=== PATIENT | male | born 1960 | race African-American/Black ===

== ENCOUNTER 2024-04-05 12:18 | Inpatient (IN) | payer OTHER ==
[~2024-04-05] VITALS: Ht 188 cm; Wt 54.2 kg
[2024-04-05 08:39] VITALS: BP 178/94; TEMP 99.1; O2SAT 95
[2024-04-05 13:19] LABS: CALCIUM, SERUM 8.4 mg/dL (8.5-10.1); CARBON DIOXIDE 25 mmol/L (21-32); CHLORIDE 105 mmol/L (98-107); GLUCOSE 88 mg/dL (74-106); POTASSIUM 3.2 mmol/L (3.5-5.1); SODIUM SERUM 137 mmol/L (136-145); UREA NITROGEN, BLOOD 11 mg/dL (7-18)
[2024-04-05 13:24] LABS: BASOPHILS % (AUTO) 0.4 % (0.0-2.0); EOSINOPHILS # (AUTO) 0.1 K/uL (0.0-0.7); EOSINOPHILS % (AUTO) 1.3 % (0.0-6.0); HEMATOCRIT 32 % (39-51); HEMOGLOBIN 10.6 g/dL (13.5-17.5); LYMPHOCYTES # (AUTO) 1.5 K/uL (0.8-4.8); LYMPHOCYTES % (AUTO) 26.5 % (20.0-44.0); MEAN CORPUSCULAR HEMOGLOBIN 30 PG (26.0-33.0); MEAN CORPUSCULAR HGB CONC 34 g/dl (31.0-36.0); MEAN CORPUSCULAR VOLUME 88 fL (80-96); MONOCYTES # (AUTO) 0.5 K/uL (0.1-1.30); MONOCYTES % (AUTO) 8.8 % (2.0-12.0); NEUTROPHILS # (AUTO) 3.6 K/uL (1.8-8.9); PLATELET COUNT (AUTO) 295 K/uL (150-450); WHITE BLOOD COUNT (AUTO) 5.8 K/uL (4.3-11.0)
[2024-04-05 13:29] LABS: LACTIC ACID 0.8 mmol/L (0.4-2.0)
[2024-04-05 13:31] LABS: INR 1.03 (0.91-1.10); PARTIAL THROMBOPLASTIN TIME 35.8 SEC (24.3-34.3); PROTHROMBIN TIME 10.9 SECS (9.2-11.1)
[2024-04-05] MEDS ORDERED: ACETAMINOPHEN ES 500 MG TABLET ONE (13:34)
[2024-04-05 13:35] LABS: ALANINE AMINOTRANSFERASE < 6 U/L (12-78); ALBUMIN 2.8 g/dL (3.4-5.0); ALKALINE PHOSPHATASE 111 U/L (46-116); ASPARTATE AMINOTRANSFERASE < 5 U/L (15-37); BILIRUBIN,DIRECT 0.1 mg/dL (0.0-0.2); BILIRUBIN,TOTAL 0.4 mg/dL (0.2-1.0); TOTAL PROTEIN, SERUM 6.7 g/dL (6.4-8.2)
[2024-04-05] MEDS: ACETAMINOPHEN ES 500 MG TABLET PO ONE (13:35)
[2024-04-05] MEDS ORDERED: LOSA50TA39 PO (13:47)
[2024-04-05] MEDS ORDERED: ASPI-1169 PO (13:47)
[2024-04-05] MEDS ORDERED: TEMA15CA PO (13:47)
[2024-04-05] MEDS ORDERED: ACET325T53 PO ×2 (13:47)
[2024-04-05] MEDS ORDERED: NA P133E RC (13:47)
[2024-04-05] MEDS ORDERED: BISA5TAB10 PO (13:47)
[2024-04-05] MEDS ORDERED: NIFE-34 PO (13:47)
[2024-04-05] MEDS ORDERED: FERR325T24 PO (13:47)
[2024-04-05] MEDS ORDERED: MAGN400O6 PO (13:47)
[2024-04-05] MEDS ORDERED: LEVE500T20 PO (13:47)
[2024-04-05] MEDS ORDERED: MULT-213 PO (13:47)
[2024-04-05] MEDS ORDERED: DICL100G34 TP (13:47)
[2024-04-05] MEDS ORDERED: IBUP-1955 PO (13:47)
[2024-04-05] MEDS ORDERED: MIRT-73 PO (13:47)
[2024-04-05] MEDS ORDERED: MELA1TAB27 PO (13:47)
[2024-04-05] MEDS ORDERED: CLON0.1T PO (13:47)
[2024-04-05] MEDS ORDERED: NALO4SPR NS (13:47)
[2024-04-05] MEDS ORDERED: TRAM50TA2 PO (13:47)
[2024-04-05] MEDS ORDERED: ONDANSETRON HCL/PF 4 MG/2 ML VIAL IVP PRN (14:30)
[2024-04-05] MEDS ORDERED: MAG HYDROX/AL HYDROX/SIMETH 30 ML UDC PO PRN (14:30)
[2024-04-05] MEDS ORDERED: MAGNESIUM HYDROXIDE 30 ML UDC PO PRN (14:30)
[2024-04-05] MEDS ORDERED: BISACODYL (5 MG) 5 MG TABLET.DR PO PRN (14:30)
[2024-04-05 16:00] VITALS: BP 155/100; TEMP 98.4; O2SAT 99
[2024-04-05] MEDS: ACETAMINOPHEN 325 MG TABLET PO PRN (16:02)
[2024-04-05] MEDS: IV NS 0.9% 1,000 ML IV PRN (16:59)
[2024-04-05] MEDS: POTASSIUM CL. PREMIX PERIPHER. 50 ML IV SCH (17:00)
[2024-04-05] MEDS: PYRIDOXINE HCL 50 MG TABLET PO SCH (17:02)
[2024-04-05 20:00] VITALS: BP 178/94; TEMP 99.1; O2SAT 95
[2024-04-05] MEDS: LEVETIRACETAM (250 MG) 250 MG TABLET PO SCH (20:01)
[2024-04-05] MEDS: TEMAZEPAM 15 MG CAPSULE PO SCH (21:02)
[2024-04-05] MEDS: MIRTAZAPINE 15 MG TABLET ONE (21:28)
[2024-04-05 22:00] VITALS: BP 150/90; TEMP 99; O2SAT 95
[2024-04-05] MEDS: MIRTAZAPINE SOLUTAB 15 MG/UDTABLET TAB.RAPDIS PO SCH (22:00)
[2024-04-05] MEDS ORDERED: PYRIDOXINE HCL PO SCH (22:00)
[2024-04-05] MEDS ORDERED: MELATONIN PO SCH (22:00)
[2024-04-06] MEDS: DICLOFENAC TOPICAL 100 GM TUBE TP PRN (02:11)
[2024-04-06] MEDS: MORPHINE SULFATE INJ 2 MG/ML DISP.SYRIN IV PRN (02:45)
[2024-04-06 08:00] VITALS: BP 163/99; TEMP 98.2; O2SAT 97
[2024-04-06] MEDS: NICOTINE PATCH (14MG) 14 MG PATCH.TD24 TD SCH (08:15)
[2024-04-06] MEDS: MULTIVIT W/MINERALS 1 TAB TABLET PO SCH (08:15)
[2024-04-06] MEDS: LOSARTAN POTASSIUM 50 MG TABLET PO SCH (08:16)
[2024-04-06] MEDS: ASPIRIN 81 MG TAB.CHEW PO SCH (08:16)
[2024-04-06] MEDS: NIFEdipine XL (30MG) 30 MG TAB PO SCH (08:17)
[2024-04-06] MEDS ORDERED: NIFEdipine XL (30MG) 30 MG TAB PO SCH (09:00)
[2024-04-06] MEDS: NICOTINE PATCH (21MG) 21 MG PATCH.TD24 TD SCH (14:31)
[2024-04-06 16:00] VITALS: BP 147/98; TEMP 98.3; O2SAT 90
[2024-04-06 20:00] VITALS: BP 161/100; TEMP 98.6; O2SAT 96
[2024-04-06 20:15] VITALS: BP 161/100; TEMP 98.6; O2SAT 96
[2024-04-07 08:00] VITALS: BP 148/81; TEMP 98.2; O2SAT 96
[2024-04-07] MEDS: FERROUS SULFATE (325 MG) 325 MG/TAB TABLET PO SCH (08:50)
[2024-04-07] MEDS ORDERED: IOHEXOL-300 100 ML VIAL IV ONE (14:38)
[2024-04-07] MEDS ORDERED: CT SWABBABLE VALVE TRANS SET 1 EA INFUS.SET MC ONE (14:39)
[2024-04-07] MEDS ORDERED: IV NS 0.9% 250 ML IV ONE (14:39)
[2024-04-07 16:00] VITALS: BP 147/87; TEMP 98.4; O2SAT 98
[2024-04-07 18:00] LABS: BASOPHILS % (AUTO) 0.4 % (0.0-2.0); EOSINOPHILS # (AUTO) 0.1 K/uL (0.0-0.7); EOSINOPHILS % (AUTO) 1.5 % (0.0-6.0); HEMATOCRIT 34 % (39-51); HEMOGLOBIN 11.5 g/dL (13.5-17.5); LYMPHOCYTES # (AUTO) 1.9 K/uL (0.8-4.8); LYMPHOCYTES % (AUTO) 34.9 % (20.0-44.0); MEAN CORPUSCULAR HEMOGLOBIN 30 PG (26.0-33.0); MEAN CORPUSCULAR HGB CONC 34 g/dl (31.0-36.0); MEAN CORPUSCULAR VOLUME 88 fL (80-96); MONOCYTES # (AUTO) 0.6 K/uL (0.1-1.30); MONOCYTES % (AUTO) 10.4 % (2.0-12.0); NEUTROPHILS # (AUTO) 2.9 K/uL (1.8-8.9); NEUTROPHILS % (AUTO) 52.8 % (43.0-81.0); PLATELET COUNT (AUTO) 317 K/uL (150-450); RED BLOOD CELL COUNT(AUTO) 3.79 MIL/uL (4.5-6.0); RED CELL DISTRIBUTION WIDTH 14.4 % (11.5-15.0); WHITE BLOOD COUNT (AUTO) 5.5 K/uL (4.3-11.0)
[2024-04-07 18:34] LABS: CALCIUM, SERUM 8.9 mg/dL (8.5-10.1); MAGNESIUM 1.7 mg/dL (1.8-2.4); PHOSPHORUS 3.5 mg/dL (2.5-4.9); POTASSIUM 3.2 mmol/L (3.5-5.1)
[2024-04-07 18:57] LABS: THYROID STIMULATING HORMONE 1.6 uIU/mL (0.358-3.74)
[2024-04-07 20:00] VITALS: BP 165/105; TEMP 99.1; O2SAT 95
[2024-04-07 20:12] VITALS: BP 165/105; TEMP 99.1; O2SAT 95
[2024-04-08 07:00] LABS: BASOPHILS % (AUTO) 0.2 % (0.0-2.0); EOSINOPHILS % (AUTO) 0.1 % (0.0-6.0); HEMATOCRIT 33 % (39-51); HEMOGLOBIN 10.9 g/dL (13.5-17.5); LYMPHOCYTES # (AUTO) 0.8 K/uL (0.8-4.8); LYMPHOCYTES % (AUTO) 8.8 % (20.0-44.0); MEAN CORPUSCULAR HEMOGLOBIN 29 PG (26.0-33.0); MEAN CORPUSCULAR HGB CONC 33 g/dl (31.0-36.0); MEAN CORPUSCULAR VOLUME 88 fL (80-96); MONOCYTES # (AUTO) 0.5 K/uL (0.1-1.30); NEUTROPHILS # (AUTO) 7.3 K/uL (1.8-8.9); NEUTROPHILS % (AUTO) 84.9 % (43.0-81.0); PLATELET COUNT (AUTO) 307 K/uL (150-450); RED CELL DISTRIBUTION WIDTH 14.6 % (11.5-15.0); WHITE BLOOD COUNT (AUTO) 8.6 K/uL (4.3-11.0)
[2024-04-08 07:14] LABS: PROTHROMBIN TIME 10.6 SECS (9.2-11.1)
[2024-04-08 07:34] LABS: CALCIUM, SERUM 9.4 mg/dL (8.5-10.1); MAGNESIUM 1.7 mg/dL (1.8-2.4); PHOSPHORUS 3.4 mg/dL (2.5-4.9); POTASSIUM 3.2 mmol/L (3.5-5.1)
[2024-04-08 08:07] LABS: IMMUNOGLOBULIN A, SERUM 264 mg/dL (61-437); IMMUNOGLOBULIN G, SERUM 1151 mg/dL (603-1613); IMMUNOGLOBULIN M, SERUM 97 mg/dL (20-172)
[2024-04-08 09:09] LABS: FOLIC ACID 9.3 ng/mL (>3.0); FREE LAMBDA LT CHAIN SERUM 35.6 mg/L (5.7-26.3); KAPPA/LAMBDA RATIO SERUM 0.93 (0.26-1.65)
[2024-04-08] MEDS: Magnesium 1GM/D5W 100ML PREMIX 100 ML IV SCH (10:37)
[2024-04-08 10:45] VITALS: BP 148/87; TEMP 99.9; O2SAT 97
[2024-04-08] MEDS: POTASSIUM CL. PREMIX PERIPHER. 50 ML IV SCH (12:46)
[2024-04-08 16:00] VITALS: BP 137/95; TEMP 98.4; O2SAT 98
[2024-04-08 20:12] VITALS: BP 134/80; TEMP 98.6; O2SAT 96
[2024-04-09 07:00] VITALS: BP 152/99; TEMP 98.7; O2SAT 95
[2024-04-09 07:08] LABS: *SPE A/G RATIO 0.9 (0.7-1.7); *SPE ALBUMIN 3.2 g/dL (2.9-4.4); *SPE ALPHA-1-GLOBULIN 0.3 g/dL (0.0-0.4); *SPE BETA GLOBULIN 1.1 g/dL (0.7-1.3); *SPE GLOBULIN, TOTAL 3.6 g/dL (2.2-3.9); *SPE M-SPIKE Not Observed g/dL (Not Observed); *SPE PROTEIN TOTAL 6.8 g/dL (6.0-8.5); *SPEGAMMA GLOBULIN 1.3 g/dL (0.4-1.8)
[2024-04-09] MEDS: Z GUARD REMEDY 4 OZ OINT TP PRN (07:49)
[2024-04-09] MEDS: NIFEdipine XL (30MG) 30 MG TAB PO SCH (10:26)
[2024-04-09] MEDS: CLONIDINE HCL 0.1 MG TABLET PO PRN (15:23)
[2024-04-09 16:00] VITALS: BP 184/100; TEMP 98.4; O2SAT 98
[2024-04-09] MEDS: ENSURE ENLIVE 237 ML LIQUID (VANILLA) PO SCH (17:33)
[2024-04-09] MEDS: HYDROCODONE/APAP 5/325MG TABLET PO PRN (18:25)
[2024-04-09 20:00] VITALS: BP_SYST 128; BP_SYST 156; BP_DIAS 68; BP_DIAS 93; TEMP 97.3; TEMP 98.8; O2SAT 96; O2SAT 97
[2024-04-10 07:30] VITALS: BP 155/104; TEMP 99; O2SAT 98
[2024-04-10 08:20] VITALS: BP 144/91; TEMP 98.1; O2SAT 95
[2024-04-11 07:00] VITALS: BP 173/108; TEMP 98.4; O2SAT 96
[2024-04-11] MEDS: LIDOCAINE 5% (PATCH) 1 EA PATCH TP SCH (14:33)
[2024-04-11 16:00] VITALS: BP 144/85; TEMP 98.7; O2SAT 96
[2024-04-11 20:00] VITALS: BP 152/90; TEMP 99.1; O2SAT 95
[2024-04-12] MEDS: MORPHINE SULFATE INJ 2 MG/ML DISP.SYRIN IV PRN (05:28)
[2024-04-12 08:00] VITALS: BP 165/98; TEMP 98.1; O2SAT 94
[2024-04-12 11:56] LABS: INR 1.05 (0.91-1.10); PARTIAL THROMBOPLASTIN TIME 36.2 SEC (24.3-34.3); PROTHROMBIN TIME 11.1 SECS (9.2-11.1)
[2024-04-12 15:55] VITALS: BP 168/104; TEMP 97.5; O2SAT 94
[2024-04-12 20:00] VITALS: BP 145/89; TEMP 97.8; O2SAT 97
[2024-04-12 21:02] VITALS: BP 145/89; TEMP 97.8; O2SAT 97
[2024-04-13] VITALS (10 sets, daily range): BP systolic 110–168; BP diastolic 69–102; TEMP 97.7–99; O2SAT 92–98
[2024-04-13 07:25] LABS: BASOPHILS % (AUTO) 0.2 % (0.0-2.0); EOSINOPHILS % (AUTO) 0.1 % (0.0-6.0); HEMATOCRIT 33 % (39-51); HEMOGLOBIN 10.9 g/dL (13.5-17.5); LYMPHOCYTES # (AUTO) 0.7 K/uL (0.8-4.8); LYMPHOCYTES % (AUTO) 10.5 % (20.0-44.0); MEAN CORPUSCULAR HEMOGLOBIN 29 PG (26.0-33.0); MEAN CORPUSCULAR HGB CONC 33 g/dl (31.0-36.0); MEAN CORPUSCULAR VOLUME 88 fL (80-96); MONOCYTES # (AUTO) 0.5 K/uL (0.1-1.30); MONOCYTES % (AUTO) 6.4 % (2.0-12.0); NEUTROPHILS # (AUTO) 5.9 K/uL (1.8-8.9); NEUTROPHILS % (AUTO) 82.8 % (43.0-81.0); PLATELET COUNT (AUTO) 374 K/uL (150-450); RED BLOOD CELL COUNT(AUTO) 3.73 MIL/uL (4.5-6.0); RED CELL DISTRIBUTION WIDTH 14.4 % (11.5-15.0); WHITE BLOOD COUNT (AUTO) 7.1 K/uL (4.3-11.0)
[2024-04-13 07:59] LABS: CALCIUM, SERUM 9.8 mg/dL (8.5-10.1); CREATININE 0.9 mg/dL (0.6-1.3); MAGNESIUM 1.7 mg/dL (1.8-2.4); PHOSPHORUS 3.4 mg/dL (2.5-4.9); POTASSIUM 3.5 mmol/L (3.5-5.1)
[2024-04-13] MEDS ORDERED: NALOXONE PREFILLED SYRINGE 2 MG/2 ML SYRINGE IV PRN (14:30)
[2024-04-13] MEDS ORDERED: MIDAZOLAM HCL 2 MG/2ML VIAL IV PRN (14:30)
[2024-04-13] MEDS ORDERED: FLUMAZENIL 0.5 MG VIAL IV PRN (14:30)
[2024-04-13] MEDS ORDERED: FENTANYL PF 250MCG/5ML AMPUL IV PRN (14:30)
[2024-04-13] MEDS: Magnesium 1GM/D5W 100ML PREMIX 100 ML IV SCH (17:49)
[2024-04-14 01:37] VITALS: BP 131/83; O2SAT 94
[2024-04-14 07:41] LABS: CALCIUM, SERUM 8.4 mg/dL (8.5-10.1); CREATININE 0.9 mg/dL (0.6-1.3); POTASSIUM 3.3 mmol/L (3.5-5.1)
[2024-04-14] MEDS ORDERED: PYRI-6 PO (12:06)
[2024-04-14] MEDS: POTASSIUM CHLORIDE 20 MEQ TAB.PRT.SR PO SCH (14:35)
[2024-04-14 16:00] VITALS: BP 148/88; TEMP 97.8; O2SAT 95
== END 2024-04-14 17:03 | DRG 120 ==
LOC: ER 12:23 → MED 14:31
PROVIDERS: ADMIT Nurse Practitioner Acute Care; ATTEND Internal Medicine
PROC: 0BDG4ZX Extraction of Left Upper Lung Lobe, Percutaneous Endoscopic Approach, Diagnostic (ICD-10-PCS; principal; 2024-04-13)
DX: C34.12 Malignant neoplasm of upper lobe, left bronchus or lung (principal); C79.51 Secondary malignant neoplasm of bone; E44.0 Moderate protein-calorie malnutrition; R62.7 Adult failure to thrive; E88.09 Other disorders of plasma-protein metabolism, not elsewhere classified; G40.909 Epilepsy, unspecified, not intractable, without status epilepticus; E87.6 Hypokalemia; I10 Essential (primary) hypertension; M19.90 Unspecified osteoarthritis, unspecified site; Z68.1 Body mass index [BMI] 19.9 or less, adult; D64.9 Anemia, unspecified; R53.1 Weakness; Z71.6 Tobacco abuse counseling; F17.210 Nicotine dependence, cigarettes, uncomplicated; R63.4 Abnormal weight loss
CPT/HCPCS: 36415; 71045-TC; 71250-TC; 71260-TC; 77012-TC; 80048-TC; 80076-TC; 82378; 82607-TC; 82728-TC; 82784; 83540-TC; 83605-TC; 83735-TC; 84100-TC; 84155; 84165; 84443-TC; 84484-TC; 85025-TC; 85610-TC; 85730-TC; 86334; 87040-TC; A6403; G0378; J2250; J2270; J3010; J3475; J3480; J7050; Q9967

== ENCOUNTER 2024-08-09 19:31 | Emergency (ER) | payer OTHER ==
[~2024-08-09] VITALS: Ht 185.4 cm; Wt 61.2 kg
[~2024-08-09 19:31] MED LIST: ACET325T53 PO; ASPI-1169 PO; BISA5TAB10 PO; CLON0.1T PO; DICL100G34 TP; FERR325T24 PO; IBUP-1955 PO; LEVE500T20 PO; LOSA50TA39 PO; MAGN400O6 PO; MELA1TAB27 PO; MIRT-73 PO; MULT-213 PO; NA P133E RC; NALO4SPR NS; NIFE-34 PO; PYRI-6 PO; TEMA15CA PO; TRAM50TA2 PO
[2024-08-09 20:09] VITALS: BP 181/97; TEMP 98.4; O2SAT 98
[2024-08-09] MEDS ORDERED: HYDROCODONE/APAP 5/325MG TABLET ONE (22:33)
[2024-08-09] MEDS: HYDROCODONE/APAP 5/325MG TABLET PO ONE (22:39)
[2024-08-10] MEDS ORDERED: PYRI-7 PO (08:10)
== END 2024-08-10 01:51 ==
LOC: ER 19:32
DX: G89.29 Other chronic pain (principal); M54.9 Dorsalgia, unspecified; I10 Essential (primary) hypertension; Z79.899 Other long term (current) drug therapy; Z85.118 Personal history of other malignant neoplasm of bronchus and lung; Z86.79 Personal history of other diseases of the circulatory system; Z87.09 Personal history of other diseases of the respiratory system

== ENCOUNTER 2024-08-10 03:50 | Inpatient (IN) | payer OTHER ==
[~2024-08-10] VITALS: Ht 185.4 cm; Wt 50.8 kg
[2024-08-10] MEDS: PANTOPRAZOLE 40 MG VIAL IV ONE (04:30)
[2024-08-10] MEDS: IV NS 0.9% 1,000 ML BAG IV ONE (04:30)
[2024-08-10 04:33] LABS: BASOPHILS % (AUTO) 0.7 % (0.0-2.0); EOSINOPHILS # (AUTO) 0.1 K/uL (0.0-0.7); EOSINOPHILS % (AUTO) 3.3 % (0.0-6.0); HEMATOCRIT 29 % (39-51); HEMOGLOBIN 9.7 g/dL (13.5-17.5); LYMPHOCYTES % (AUTO) 22.7 % (20.0-44.0); MEAN CORPUSCULAR HEMOGLOBIN 29 PG (26.0-33.0); MEAN CORPUSCULAR HGB CONC 33 g/dl (31.0-36.0); MEAN CORPUSCULAR VOLUME 87 fL (80-96); MONOCYTES # (AUTO) 0.4 K/uL (0.1-1.30); MONOCYTES % (AUTO) 8.1 % (2.0-12.0); NEUTROPHILS # (AUTO) 2.9 K/uL (1.8-8.9); NEUTROPHILS % (AUTO) 65.2 % (43.0-81.0); PLATELET COUNT (AUTO) 356 K/uL (150-450); RED BLOOD CELL COUNT(AUTO) 3.36 MIL/uL (4.5-6.0); RED CELL DISTRIBUTION WIDTH 15.2 % (11.5-15.0); WHITE BLOOD COUNT (AUTO) 4.4 K/uL (4.3-11.0)
[2024-08-10 04:47] LABS: INR 1.03 (0.91-1.10); PARTIAL THROMBOPLASTIN TIME 33.3 SEC (24.3-34.3); PROTHROMBIN TIME 10.9 SECS (9.2-11.1)
[2024-08-10 04:50] LABS: LACTIC ACID 0.5 mmol/L (0.4-2.0)
[2024-08-10 04:57] LABS: CALCIUM, SERUM 9.5 mg/dL (8.5-10.1); CREATININE 2.3 mg/dL (0.6-1.3); POTASSIUM 4.2 mmol/L (3.5-5.1)
[2024-08-10 05:01] LABS: ALBUMIN 2.7 g/dL (3.4-5.0); BILIRUBIN,DIRECT 0.1 mg/dL (0.0-0.2); BILIRUBIN,TOTAL 0.1 mg/dL (0.2-1.0)
[2024-08-10] MEDS ORDERED: ONDANSETRON HCL/PF 4 MG/2 ML VIAL IVP PRN (05:30)
[2024-08-10] MEDS ORDERED: Z GUARD REMEDY 4 OZ OINT TP PRN (05:30)
[2024-08-10] MEDS ORDERED: MAG HYDROX/AL HYDROX/SIMETH 30 ML UDC PO PRN (05:30)
[2024-08-10] MEDS ORDERED: MAGNESIUM HYDROXIDE 30 ML UDC PO PRN (05:30)
[2024-08-10] MEDS: IV D5/0.45 NACL 1,000 ML IV PRN (06:30)
[2024-08-10] MEDS: hydrALAZINE HCL IV 20 MG VIAL IV PRN (07:20)
[2024-08-10] MEDS ORDERED: PYRI-7 PO (08:10)
[2024-08-10] MEDS: ACETAMINOPHEN 325 MG TABLET PO PRN (08:17)
[2024-08-10] MEDS: PANTOPRAZOLE 40 MG VIAL IV SCH (08:18)
[2024-08-10 08:27] VITALS: BP 168/95; TEMP 97.2; O2SAT 98
[2024-08-10] MEDS ORDERED: BISACODYL (5 MG) 5 MG TABLET.DR PO PRN (11:00)
[2024-08-10 11:21] LABS: HEMOGLOBIN 8.9 g/dL (13.5-17.5)
[2024-08-10] MEDS: MULTIVIT W/MINERALS 1 TAB TABLET PO SCH (11:51)
[2024-08-10] MEDS: LOSARTAN POTASSIUM 50 MG TABLET PO SCH (11:51)
[2024-08-10] MEDS: LEVETIRACETAM (250 MG) 250 MG TABLET PO SCH (11:51)
[2024-08-10] MEDS: NIFEDIPINE XL 60 MG TAB.ER.24 PO SCH (11:51)
[2024-08-10] MEDS: PYRIDOXINE HCL 50 MG TABLET PO SCH (11:52)
[2024-08-10 11:53] VITALS: BP 156/104
[2024-08-10 16:00] VITALS: BP 112/67; TEMP 97.3; O2SAT 96
[2024-08-10] MEDS: PEG 3350/NA SULF,BICARB,CL/KCL 4,000 ML BOTTLE PO ONE (16:58)
[2024-08-10] MEDS: IV NS 0.9% 1,000 ML IV PRN (17:45)
[2024-08-10 18:03] LABS: APPEARANCE,URINE CLEAR (CLEAR); BILIRUBIN,URINE NEGATIVE (NEGATIVE); BLOOD, URINE NEGATIVE Ery/uL (NEGATIVE); COLOR,URINE YELLOW (YELLOW); KETONES,URINE NEGATIVE (NEGATIVE); LEUKOCYTE ESTERASE ,URINE 2+ (NEGATIVE); NITRITE, URINE POSITIVE (NEGATIVE); PROTEIN,URINE NEGATIVE (NEGATIVE); UGLUCOSE NEGATIVE (NEGATIVE); UROBILINOGEN,URINE 0.2 EU/dL (0.2)
[2024-08-10 18:26] LABS: CREATININE, URINE 80.4 MG/DL (30.0-125.0); URINE TOTAL PROTEIN 30.6 mg/dL (0-11.9)
[2024-08-10 18:43] LABS: ADD URINE CULTURE YES; BACTERIA,URINE 2+ /HPF (None Seen); RBC,URINE 0-2 /HPF (0-2); SQUAMOUS EPITHELIAL CELL,UR 0-2 /HPF (None Seen)
[2024-08-10 18:56] LABS: HEMOGLOBIN 7.8 g/dL (13.5-17.5)
[2024-08-10 19:25] LABS: EOSINOPHIL,URINE None Seen
[2024-08-10] MEDS: MIRTAZAPINE SOLUTAB 15 MG/UDTABLET TAB.RAPDIS PO SCH (21:05)
[2024-08-10] MEDS: TEMAZEPAM 15 MG CAPSULE PO SCH (21:07)
[2024-08-11 04:00] VITALS: BP 150/75; TEMP 97.3; O2SAT 96
[2024-08-11 06:46] LABS: BASOPHILS % (AUTO) 0.7 % (0.0-2.0); EOSINOPHILS # (AUTO) 0.1 K/uL (0.0-0.7); EOSINOPHILS % (AUTO) 2.6 % (0.0-6.0); HEMATOCRIT 24 % (39-51); HEMOGLOBIN 8.2 g/dL (13.5-17.5); LYMPHOCYTES # (AUTO) 1.2 K/uL (0.8-4.8); LYMPHOCYTES % (AUTO) 23.1 % (20.0-44.0); MEAN CORPUSCULAR HEMOGLOBIN 29 PG (26.0-33.0); MEAN CORPUSCULAR HGB CONC 34 g/dl (31.0-36.0); MEAN CORPUSCULAR VOLUME 86 fL (80-96); MONOCYTES # (AUTO) 0.3 K/uL (0.1-1.30); MONOCYTES % (AUTO) 5.7 % (2.0-12.0); NEUTROPHILS # (AUTO) 3.5 K/uL (1.8-8.9); NEUTROPHILS % (AUTO) 67.9 % (43.0-81.0); PLATELET COUNT (AUTO) 338 K/uL (150-450); RED CELL DISTRIBUTION WIDTH 14.8 % (11.5-15.0); WHITE BLOOD COUNT (AUTO) 5.2 K/uL (4.3-11.0)
[2024-08-11 07:05] LABS: ALBUMIN 2.4 g/dL (3.4-5.0); BILIRUBIN,TOTAL 0.2 mg/dL (0.2-1.0); CALCIUM, SERUM 8.6 mg/dL (8.5-10.1); CREATININE 1.4 mg/dL (0.6-1.3); MAGNESIUM 1.6 mg/dL (1.8-2.4); PHOSPHORUS 3.1 mg/dL (2.5-4.9); TOTAL PROTEIN, SERUM 6.1 g/dL (6.4-8.2)
[2024-08-11 07:34] LABS: THYROID STIMULATING HORMONE 2.46 uIU/mL (0.358-3.74)
[2024-08-11] MEDS: Magnesium 1GM/D5W 100ML PREMIX 100 ML IV SCH (10:09)
[2024-08-11] MEDS: CEFTRIAXONE 1 G in IV D5W 50 ML IV SCH (10:19)
[2024-08-11 12:00] VITALS: BP 147/87; TEMP 98.4; O2SAT 98
[2024-08-11 20:00] VITALS: BP 150/97; TEMP 98.2; O2SAT 97
[2024-08-11] MEDS: ZOLPIDEM TARTRATE 5 MG TABLET PO PRN (22:46)
[2024-08-12 04:00] VITALS: BP 149/92; TEMP 98.6; O2SAT 98
[2024-08-12 06:38] LABS: BASOPHILS % (AUTO) 0.6 % (0.0-2.0); EOSINOPHILS # (AUTO) 0.1 K/uL (0.0-0.7); EOSINOPHILS % (AUTO) 2.1 % (0.0-6.0); HEMATOCRIT 22 % (39-51); HEMOGLOBIN 7.5 g/dL (13.5-17.5); LYMPHOCYTES % (AUTO) 17.6 % (20.0-44.0); MEAN CORPUSCULAR HEMOGLOBIN 29 PG (26.0-33.0); MEAN CORPUSCULAR HGB CONC 34 g/dl (31.0-36.0); MEAN CORPUSCULAR VOLUME 87 fL (80-96); MONOCYTES # (AUTO) 0.4 K/uL (0.1-1.30); MONOCYTES % (AUTO) 6.1 % (2.0-12.0); NEUTROPHILS # (AUTO) 4.4 K/uL (1.8-8.9); NEUTROPHILS % (AUTO) 73.6 % (43.0-81.0); PLATELET COUNT (AUTO) 333 K/uL (150-450); RED BLOOD CELL COUNT(AUTO) 2.56 MIL/uL (4.5-6.0); RED CELL DISTRIBUTION WIDTH 15.1 % (11.5-15.0); WHITE BLOOD COUNT (AUTO) 5.9 K/uL (4.3-11.0)
[2024-08-12 06:58] LABS: CALCIUM, SERUM 8.9 mg/dL (8.5-10.1); MAGNESIUM 1.8 mg/dL (1.8-2.4); PHOSPHORUS 3.7 mg/dL (2.5-4.9)
[2024-08-12 08:08] LABS: PTH, INTACT 10 pg/mL (15-65)
[2024-08-12] MEDS: FERROUS SULFATE (325 MG) 325 MG/TAB TABLET PO SCH (09:00)
[2024-08-12] MEDS: POTASSIUM CHLORIDE 20 MEQ POWDER PACKET PO ONE (10:03)
[2024-08-12 12:00] VITALS: BP 140/78; TEMP 98.6; O2SAT 97
[2024-08-12] MEDS: MORPHINE SULFATE INJ 2 MG/ML DISP.SYRIN IV ONE (14:17)
[2024-08-12] MEDS: LORAZEPAM INJ 2 MG/ML VIAL IV ONE (16:39)
[2024-08-12 20:00] VITALS: BP 148/89; TEMP 98.6
[2024-08-13 04:00] VITALS: BP 162/81; TEMP 98.6; O2SAT 99
[2024-08-13 05:10] LABS: *SPE A/G RATIO 0.8 (0.7-1.7); *SPE ALBUMIN 2.5 g/dL (2.9-4.4); *SPE ALPHA-1-GLOBULIN 0.4 g/dL (0.0-0.4); *SPE ALPHA-2-GLOBULIN 0.8 g/dL (0.4-1.0); *SPE GLOBULIN, TOTAL 3.3 g/dL (2.2-3.9); *SPE M-SPIKE Not Observed g/dL (Not Observed); *SPE PROTEIN TOTAL 5.8 g/dL (6.0-8.5); *SPEGAMMA GLOBULIN 1.2 g/dL (0.4-1.8)
[2024-08-13 05:28] VITALS: BP 146/78; O2SAT 99
[2024-08-13 08:00] VITALS: BP 160/85; TEMP 98.6; O2SAT 98
[2024-08-13] MEDS: TRAMADOL HCL 50 MG TABLET PO PRN (08:29)
[2024-08-13] MEDS: PANTOPRAZOLE 40 MG TABLET.DR PO SCH (09:09)
[2024-08-13] MEDS ORDERED: PANT40TA49 PO (10:54)
[2024-08-13] MEDS: POTASSIUM CHLORIDE 20 MEQ TAB.PRT.SR PO ONE (11:15)
[2024-08-13 12:57] LABS: BASOPHILS % (AUTO) 0.6 % (0.0-2.0); EOSINOPHILS # (AUTO) 0.2 K/uL (0.0-0.7); EOSINOPHILS % (AUTO) 3.4 % (0.0-6.0); HEMATOCRIT 24 % (39-51); HEMOGLOBIN 7.7 g/dL (13.5-17.5); LYMPHOCYTES # (AUTO) 1.2 K/uL (0.8-4.8); LYMPHOCYTES % (AUTO) 23.2 % (20.0-44.0); MEAN CORPUSCULAR HEMOGLOBIN 29 PG (26.0-33.0); MEAN CORPUSCULAR HGB CONC 33 g/dl (31.0-36.0); MEAN CORPUSCULAR VOLUME 89 fL (80-96); MONOCYTES # (AUTO) 0.3 K/uL (0.1-1.30); MONOCYTES % (AUTO) 5.9 % (2.0-12.0); NEUTROPHILS # (AUTO) 3.6 K/uL (1.8-8.9); NEUTROPHILS % (AUTO) 66.9 % (43.0-81.0); PLATELET COUNT (AUTO) 365 K/uL (150-450); RED BLOOD CELL COUNT(AUTO) 2.67 MIL/uL (4.5-6.0); WHITE BLOOD COUNT (AUTO) 5.4 K/uL (4.3-11.0)
[2024-08-13] MEDS: OLANZAPINE 10 MG VIAL IM PRN (13:01)
[2024-08-13 13:09] LABS: CREATININE 0.9 mg/dL (0.6-1.3); POTASSIUM 3.5 mmol/L (3.5-5.1)
[2024-08-13] MEDS ORDERED: CEPH-570 PO (13:31)
[2024-08-13 16:01] VITALS: BP 164/96; TEMP 98.8; O2SAT 98
[2024-08-13] MEDS: MORPHINE SULFATE INJ 2 MG/ML DISP.SYRIN IV ONE (16:49)
[2024-08-13] MEDS ORDERED: IOHEXOL-300 100 ML VIAL IV ONE (17:42)
[2024-08-13] MEDS ORDERED: IV NS 0.9% 250 ML IV ONE (17:42)
[2024-08-13] MEDS ORDERED: CT SWABBABLE VALVE TRANS SET 1 EA INFUS.SET MC ONE (17:42)
[2024-08-13 20:00] VITALS: BP 141/83; TEMP 98.1; O2SAT 98
[2024-08-14 04:00] VITALS: BP 137/89; TEMP 97.9; O2SAT 100
[2024-08-14 08:00] VITALS: BP 125/60; TEMP 97.9; O2SAT 96
[2024-08-14 09:21] VITALS: BP 125/60
[2024-08-14] MEDS ORDERED: LIDO1ADH82 TP (11:19)
[2024-08-14 14:34] VITALS: TEMP 97.9
[2024-08-14] MEDS ORDERED: ENSURE ENLIVE CHOC 237 ML CAN PO SCH (17:00)
== END 2024-08-14 16:03 | DRG 253 ==
LOC: ER 03:52 → TELE1 05:14 → MEDSG1 14:09 → TELE-TD 08-11 18:04 → TELE1 08-11 18:15 → MEDSG1 08-12 10:09
PROVIDERS: ADMIT Nurse Practitioner Acute Care; ATTEND Nurse Practitioner Acute Care
DX: K62.5 Hemorrhage of anus and rectum (principal); N17.0 Acute kidney failure with tubular necrosis; C79.51 Secondary malignant neoplasm of bone; E44.0 Moderate protein-calorie malnutrition; N13.6 Pyonephrosis; E88.09 Other disorders of plasma-protein metabolism, not elsewhere classified; F29 Unspecified psychosis not due to a substance or known physiological condition; R62.7 Adult failure to thrive; C34.12 Malignant neoplasm of upper lobe, left bronchus or lung; D64.9 Anemia, unspecified; E87.6 Hypokalemia; I10 Essential (primary) hypertension; F17.210 Nicotine dependence, cigarettes, uncomplicated; G40.909 Epilepsy, unspecified, not intractable, without status epilepticus; G47.00 Insomnia, unspecified; G89.29 Other chronic pain; M89.8X9 Other specified disorders of bone, unspecified site; M19.90 Unspecified osteoarthritis, unspecified site; I69.331 Monoplegia of upper limb following cerebral infarction affecting right dominant side; R33.9 Retention of urine, unspecified; R53.1 Weakness; F32.A Depression, unspecified; Z53.20 Procedure and treatment not carried out because of patient's decision for unspecified reasons; Z68.1 Body mass index [BMI] 19.9 or less, adult; B95.7 Other staphylococcus as the cause of diseases classified elsewhere
CPT/HCPCS: 36415; 70450-TC; 76770-TC; 80048-TC; 80053-TC; 80076-TC; 81001; 82550-TC; 82570-TC; 83605-TC; 83690-TC; 83735-TC; 83970; 84100-TC; 84155; 84165; 84300-TC; 84443-TC; 85025-TC; 85027-TC; 85730-TC; 86850-TC; 87040-TC; 87081-TC; 87086-TC; A4223; G0378; J0360; J0696; J2060; J2270; J2470; J3475; J3490; J7030; J7050; J7060; Q9967

== ENCOUNTER 2024-11-30 10:36 | Inpatient (IN) | payer OTHER ==
[~2024-11-30] VITALS: Ht 190.5 cm; Wt 47.6 kg
[2024-11-30] VITALS (7 sets, daily range): BP systolic 100–118; BP diastolic 64–78; TEMP 97.3–97.6; O2SAT 99
[~2024-11-30 10:36] MED LIST changes: +CEPH-570 PO; +LIDO1ADH82 TP; +PANT40TA49 PO; -PYRI-6 PO; +PYRI-7 PO
[2024-11-30] MEDS: IV NS 0.9% 1,000 ML BAG IV ONE (11:15)
[2024-11-30] MEDS: CEFEPIME 1 GM in IV D5W 50 ML IV ONE (11:20)
[2024-11-30] MEDS ORDERED: SENN-261 PO (11:34)
[2024-11-30] MEDS ORDERED: LACT-215 PO (11:34)
[2024-11-30] MEDS ORDERED: AMIN30LI2 PO (11:34)
[2024-11-30] MEDS ORDERED: PANT40TA49 PO (11:34)
[2024-11-30] MEDS ORDERED: UMEC1BLS IH (11:34)
[2024-11-30] MEDS ORDERED: ASCORBIC ACID PO (11:34)
[2024-11-30 11:47] LABS: BASOPHILS # (AUTO) 0.1 K/uL (0.0-0.2); BASOPHILS % (AUTO) 0.4 % (0.0-2.0); EOSINOPHILS % (AUTO) 0.1 % (0.0-6.0); HEMATOCRIT 21 % (39-51); LYMPHOCYTES # (AUTO) 9.1 K/uL (0.8-4.8); MEAN CORPUSCULAR HEMOGLOBIN 22 PG (26.0-33.0); MEAN CORPUSCULAR HGB CONC 32 g/dl (31.0-36.0); MEAN CORPUSCULAR VOLUME 67 fL (80-96); MONOCYTES # (AUTO) 2.7 K/uL (0.1-1.30); MONOCYTES % (AUTO) 12.3 % (2.0-12.0); NEUTROPHILS # (AUTO) 9.8 K/uL (1.8-8.9); NEUTROPHILS % (AUTO) 45.2 % (43.0-81.0); PLATELET COUNT (AUTO) 395 K/uL (150-450); RED BLOOD CELL COUNT(AUTO) 3.06 MIL/uL (4.5-6.0); RED CELL DISTRIBUTION WIDTH 19.9 % (11.5-15.0); WHITE BLOOD COUNT (AUTO) 21.6 K/uL (4.3-11.0)
[2024-11-30 11:56] LABS: CALCIUM, SERUM 10.7 mg/dL (8.5-10.1); CREATININE 4.1 mg/dL (0.6-1.3)
[2024-11-30 11:57] LABS: HEMOGLOBIN 6.6 g/dL (13.5-17.5)
[2024-11-30 12:01] LABS: POTASSIUM 6.2 mmol/L (3.5-5.1)
[2024-11-30 12:02] LABS: ALBUMIN 1.7 g/dL (3.4-5.0); BILIRUBIN,DIRECT 0.1 mg/dL (0.0-0.2); BILIRUBIN,TOTAL 0.3 mg/dL (0.2-1.0); TOTAL PROTEIN, SERUM 6.9 g/dL (6.4-8.2)
[2024-11-30 12:03] LABS: LACTIC ACID 0.9 mmol/L (0.4-2.0)
[2024-11-30 12:22] LABS: INR 1.55 (0.91-1.10); PARTIAL THROMBOPLASTIN TIME 46.9 SEC (24.3-34.3)
[2024-11-30] MEDS: Calcium Gluconate 1GM/10ML 4.65 MEQ in IV NS 0.9% 100 ML IV ONE (12:55)
[2024-11-30] MEDS: SODIUM BICARBONATE SYR 50 MEQ/50 ML DISP.SYRIN IV ONE (12:55)
[2024-11-30] MEDS ORDERED: SODIUM BICARBONATE SYR 50 MEQ/50 ML DISP.SYRIN ONE (13:07)
[2024-11-30 13:25] LABS: APPEARANCE,URINE TURBID (CLEAR); COLOR,URINE LIGHT YELLOW (YELLOW)
[2024-11-30 13:26] LABS: BILIRUBIN,URINE NEGATIVE (NEGATIVE); KETONES,URINE NEGATIVE (NEGATIVE); UGLUCOSE NEGATIVE (NEGATIVE)
[2024-11-30 13:27] LABS: BLOOD, URINE 3+ Ery/uL (NEGATIVE); PH,URINE 7.5 (5.0-8.0); PROTEIN,URINE 3+ mg/dl (NEGATIVE)
[2024-11-30 13:28] LABS: LEUKOCYTE ESTERASE ,URINE LARGE (NEGATIVE); NITRITE, URINE NEGATIVE (NEGATIVE); UROBILINOGEN,URINE 0.2 EU/dL (0.2)
[2024-11-30 14:21] LABS: WBC,URINE TOO NUMEROUS TO COUN /HPF (0-3)
[2024-11-30 14:22] LABS: ADD URINE CULTURE YES; BACTERIA,URINE Many /HPF (None Seen); RBC,URINE 51-80 /HPF (0-2)
[2024-11-30 14:23] LABS: SQUAMOUS EPITHELIAL CELL,UR Moderate /HPF (None Seen)
[2024-11-30 14:49] LABS: LYMPHOCYTES % (MANUAL) 7 % (16-48); MONOCYTES % (MANUAL) 9 % (0-11.0); NEUTROPHILS % (MANUAL) 84 (42-76); PLATELET ESTIMATE ADEQUATE
[2024-11-30 14:50] LABS: ANISOCYTOSIS 2+; HYPOCHROMASIA 1+
[2024-11-30] MEDS ORDERED: BISACODYL (5 MG) 5 MG TABLET.DR PO PRN (16:00)
[2024-11-30] MEDS ORDERED: CLONIDINE HCL 0.1 MG TABLET PO PRN (16:00)
[2024-11-30] MEDS ORDERED: ACETAMINOPHEN 325 MG TABLET PO PRN ×2 (16:00)
[2024-11-30] MEDS ORDERED: ONDANSETRON HCL/PF 4 MG/2 ML VIAL IVP PRN (16:00)
[2024-11-30] MEDS ORDERED: DICLOFENAC TOPICAL 100 GM TUBE TP PRN (16:00)
[2024-11-30] MEDS ORDERED: SENNOSIDES 8.6 MG TABLET PO PRN (16:00)
[2024-11-30] MEDS ORDERED: MAG HYDROX/AL HYDROX/SIMETH 30 ML UDC PO PRN (16:00)
[2024-11-30] MEDS ORDERED: MAGNESIUM HYDROXIDE 30 ML UDC PO PRN (16:00)
[2024-11-30] MEDS: IV NS 0.9% 1,000 ML IV SCH (19:30)
[2024-11-30] MEDS: LEVETIRACETAM (250 MG) 250 MG TABLET PO SCH (20:05)
[2024-11-30] MEDS: TRAMADOL HCL 50 MG TABLET PO PRN (21:26)
[2024-12-01] VITALS (83 sets, daily range): BP systolic 79–114; BP diastolic 50–73; TEMP 93–97.2; O2SAT 94–100
[2024-12-01] MEDS: NOREPINEPHRINE 8 MG in IV D5W 242 ML IV PRN (05:37)
[2024-12-01] MEDS: NOREPINEPHRINE 8MG/250ML RTU 250 ML IV ONE (05:38)
[2024-12-01 07:47] LABS: CALCIUM, SERUM 10.3 mg/dL (8.5-10.1); CREATININE 3.7 mg/dL (0.6-1.3); PHOSPHORUS 5.5 mg/dL (2.5-4.9); POTASSIUM 5.5 mmol/L (3.5-5.1)
[2024-12-01] MEDS: PANTOPRAZOLE 40 MG TABLET.DR PO SCH (08:08)
[2024-12-01 08:54] LABS: BASOPHILS # (AUTO) 0.1 K/uL (0.0-0.2); BASOPHILS % (AUTO) 0.2 % (0.0-2.0); HEMATOCRIT 22 % (39-51); LYMPHOCYTES # (AUTO) 14.2 K/uL (0.8-4.8); LYMPHOCYTES % (AUTO) 47.3 % (20.0-44.0); MEAN CORPUSCULAR HEMOGLOBIN 23 PG (26.0-33.0); MEAN CORPUSCULAR HGB CONC 32 g/dl (31.0-36.0); MEAN CORPUSCULAR VOLUME 71 fL (80-96); MONOCYTES # (AUTO) 0.4 K/uL (0.1-1.30); MONOCYTES % (AUTO) 1.2 % (2.0-12.0); NEUTROPHILS # (AUTO) 15.4 K/uL (1.8-8.9); NEUTROPHILS % (AUTO) 51.3 % (43.0-81.0); PLATELET COUNT (AUTO) 335 K/uL (150-450); RED BLOOD CELL COUNT(AUTO) 3.03 MIL/uL (4.5-6.0); RED CELL DISTRIBUTION WIDTH 20.3 % (11.5-15.0)
[2024-12-01 09:26] LABS: WHITE BLOOD COUNT (AUTO) 30.1 K/uL (4.3-11.0)
[2024-12-01 09:27] LABS: HEMOGLOBIN 6.8 g/dL (13.5-17.5)
[2024-12-01] MEDS: SODIUM ZIRCONIUM CYCLOSILICATE 10 GM POWD.PACK PO ONE (09:53)
[2024-12-01] MEDS: CEFEPIME 1 GM in IV D5W 50 ML IV SCH (11:02)
[2024-12-01] MEDS: ARGININE/GLUTAMINE/CALCIUM BMB 1 EACH POWD.PACK PO SCH (11:30)
[2024-12-01 12:40] LABS: LYMPHOCYTES % (MANUAL) 1 % (16-48); MONOCYTES % (MANUAL) 2 % (0-11.0); NEUTROPHILS % (MANUAL) 97 (42-76)
[2024-12-01 12:41] LABS: ANISOCYTOSIS 1+; PLATELET ESTIMATE ADEQUATE
[2024-12-01 12:42] LABS: HYPOCHROMASIA 1+
[2024-12-01] MEDS: LIDOCAINE 2% JEL UROJET 10 ML MM ONE (17:31)
[2024-12-01 18:34] LABS: BASOPHILS % (AUTO) 0.1 % (0.0-2.0); HEMATOCRIT 24 % (39-51); LYMPHOCYTES # (AUTO) 0.4 K/uL (0.8-4.8); LYMPHOCYTES % (AUTO) 1.7 % (20.0-44.0); MEAN CORPUSCULAR HEMOGLOBIN 24 PG (26.0-33.0); MEAN CORPUSCULAR HGB CONC 33 g/dl (31.0-36.0); MEAN CORPUSCULAR VOLUME 71 fL (80-96); MONOCYTES # (AUTO) 0.9 K/uL (0.1-1.30); MONOCYTES % (AUTO) 3.6 % (2.0-12.0); NEUTROPHILS % (AUTO) 94.6 % (43.0-81.0); PLATELET COUNT (AUTO) 279 K/uL (150-450); RED BLOOD CELL COUNT(AUTO) 3.39 MIL/uL (4.5-6.0); RED CELL DISTRIBUTION WIDTH 21.5 % (11.5-15.0); WHITE BLOOD COUNT (AUTO) 25.3 K/uL (4.3-11.0)
[2024-12-01 18:44] LABS: CALCIUM, SERUM 9.8 mg/dL (8.5-10.1); CREATININE 3.5 mg/dL (0.6-1.3); POTASSIUM 5.2 mmol/L (3.5-5.1)
[2024-12-01 19:11] LABS: BAND % (MANUAL) 3 % (0.0-5.0); LYMPHOCYTES % (MANUAL) 1 % (16-48); MONOCYTES % (MANUAL) 1 % (0-11.0); NEUTROPHILS % (MANUAL) 95 (42-76)
[2024-12-01 19:12] LABS: ANISOCYTOSIS 1+; HYPOCHROMASIA 1+; PLATELET ESTIMATE ADEQUATE
[2024-12-01] MEDS ORDERED: CLINDAMYCIN IV RTU IN D5W 900 MG/50 ML PIGGYBACK IV SCH (21:00)
[2024-12-01] MEDS ORDERED: CLINDAMYCIN 900 MG/6 ML VIAL ONE (23:56)
[2024-12-02] VITALS (66 sets, daily range): BP systolic 81–114; BP diastolic 51–79; TEMP 96.6–97.3; O2SAT 95–100
[2024-12-02] MEDS: CLINDAMYCIN 300 MG in IV NS 0.9% 50 ML IV SCH (00:05)
[2024-12-02 04:56] LABS: HEMATOCRIT 26 % (39-51); HEMOGLOBIN 8.4 g/dL (13.5-17.5); LYMPHOCYTES # (AUTO) 0.6 K/uL (0.8-4.8); LYMPHOCYTES % (AUTO) 1.7 % (20.0-44.0); MEAN CORPUSCULAR HEMOGLOBIN 24 PG (26.0-33.0); MEAN CORPUSCULAR HGB CONC 33 g/dl (31.0-36.0); MEAN CORPUSCULAR VOLUME 73 fL (80-96); MONOCYTES # (AUTO) 0.6 K/uL (0.1-1.30); MONOCYTES % (AUTO) 1.9 % (2.0-12.0); NEUTROPHILS # (AUTO) 32.2 K/uL (1.8-8.9); NEUTROPHILS % (AUTO) 96.4 % (43.0-81.0); PLATELET COUNT (AUTO) 287 K/uL (150-450); RED BLOOD CELL COUNT(AUTO) 3.52 MIL/uL (4.5-6.0); RED CELL DISTRIBUTION WIDTH 21.5 % (11.5-15.0)
[2024-12-02 04:59] LABS: ALBUMIN 1.5 g/dL (3.4-5.0); BILIRUBIN,TOTAL 0.4 mg/dL (0.2-1.0); CALCIUM, SERUM 10.2 mg/dL (8.5-10.1); CREATININE 3.7 mg/dL (0.6-1.3); MAGNESIUM 1.8 mg/dL (1.8-2.4); PHOSPHORUS 5.8 mg/dL (2.5-4.9); POTASSIUM 5.1 mmol/L (3.5-5.1)
[2024-12-02 05:01] LABS: WHITE BLOOD COUNT (AUTO) 33.4 K/uL (4.3-11.0)
[2024-12-02 06:07] LABS: ANISOCYTOSIS 1+; BAND % (MANUAL) 3 % (0.0-5.0); BASOPHILS % (MANUAL) 0 % (0.0-2.0); EOSINOPHILS % (MANUAL) 0 % (0-4); LYMPHOCYTES % (MANUAL) 2 % (16-48); MONOCYTES % (MANUAL) 4 % (0-11.0); NEUTROPHILS % (MANUAL) 91 (42-76); PLATELET ESTIMATE ADEQUATE
[2024-12-02] MEDS: FERROUS SULFATE (325 MG) 325 MG/TAB TABLET PO SCH (08:23)
[2024-12-02] MEDS: THERAHONEY GEL 1.5 OZ TUBE TP SCH (08:24)
[2024-12-02 10:57] LABS: APPEARANCE,URINE TURBID (CLEAR); COLOR,URINE DARK YELLOW (YELLOW)
[2024-12-02 10:58] LABS: BILIRUBIN,URINE NEGATIVE (NEGATIVE); KETONES,URINE NEGATIVE (NEGATIVE); PROTEIN,URINE 1+ mg/dl (NEGATIVE); UGLUCOSE NEGATIVE (NEGATIVE); UROBILINOGEN,URINE 0.2 EU/dL (0.2)
[2024-12-02 11:02] LABS: BLOOD, URINE 2+ Ery/uL (NEGATIVE); LEUKOCYTE ESTERASE ,URINE 3+ (NEGATIVE); NITRITE, URINE POSITIVE (NEGATIVE)
[2024-12-02 11:04] LABS: ADD URINE CULTURE YES; BACTERIA,URINE 1+ /HPF (None Seen); MUCUS,URINE Few /LPF (None Seen); RBC,URINE 21-50 /HPF (0-2); SQUAMOUS EPITHELIAL CELL,UR 0-2 /HPF (None Seen); WBC,URINE TOO NUMEROUS TO COUN /HPF (0-3)
[2024-12-02 11:44] LABS: CREATININE, URINE < 13.0 MG/DL (30.0-125.0); URINE SODIUM, RANDOM 80 mmol/l (40-220); URINE TOTAL PROTEIN 362.9 mg/dL (0-11.9)
[2024-12-02 14:04] LABS: EOSINOPHIL,URINE None Seen
[2024-12-02] MEDS: CALCITONIN,SALMON,SYNTHETIC 3.7 ML SPRAY.PUMP NS SCH (16:00)
[2024-12-02] MEDS: Z GUARD REMEDY 4 OZ OINT TP PRN (16:38)
[2024-12-02 17:17] LABS: THYROID STIMULATING HORMONE 2.57 uIU/mL (0.358-3.74)
[2024-12-02 17:34] LABS: INR 1.74 (0.91-1.10); PARTIAL THROMBOPLASTIN TIME 46.4 SEC (24.3-34.3); PROTHROMBIN TIME 17.8 SECS (9.2-11.1)
[2024-12-02 17:53] LABS: D-DIMER 7.37 mg/L(FEU (0.17-0.50)
[2024-12-02] MEDS: MUPIROCIN OINT 2% 22 GM TUBE NS SCH (20:24)
[2024-12-03] VITALS (22 sets, daily range): BP systolic 90–124; BP diastolic 66–79; TEMP 94.3–98; O2SAT 96–100
[2024-12-03 05:02] LABS: HEMATOCRIT 21 % (39-51); HEMOGLOBIN 7.2 g/dL (13.5-17.5); LYMPHOCYTES # (AUTO) 0.7 K/uL (0.8-4.8); LYMPHOCYTES % (AUTO) 2.4 % (20.0-44.0); MEAN CORPUSCULAR HEMOGLOBIN 24 PG (26.0-33.0); MEAN CORPUSCULAR HGB CONC 34 g/dl (31.0-36.0); MEAN CORPUSCULAR VOLUME 71 fL (80-96); MONOCYTES # (AUTO) 0.5 K/uL (0.1-1.30); MONOCYTES % (AUTO) 1.7 % (2.0-12.0); NEUTROPHILS # (AUTO) 29.7 K/uL (1.8-8.9); NEUTROPHILS % (AUTO) 95.9 % (43.0-81.0); PLATELET COUNT (AUTO) 217 K/uL (150-450); RED CELL DISTRIBUTION WIDTH 22.4 % (11.5-15.0)
[2024-12-03 05:10] LABS: PTH, INTACT 2 pg/mL (15-65)
[2024-12-03 05:21] LABS: CALCIUM, SERUM 9.7 mg/dL (8.5-10.1); CREATININE 3.2 mg/dL (0.6-1.3); POTASSIUM 4.6 mmol/L (3.5-5.1)
[2024-12-03 05:23] LABS: IRON, SERUM 22 ug/dl (50-175); TOTAL IRON BINDING CAPACITY 90 ug/dl (250-450)
[2024-12-03 05:39] LABS: FERRITIN 406 ng/mL (8-388)
[2024-12-03 05:59] LABS: ANISOCYTOSIS 1+; BAND % (MANUAL) 3 % (0.0-5.0); BASOPHILS % (MANUAL) 0 % (0.0-2.0); EOSINOPHILS % (MANUAL) 0 % (0-4); LYMPHOCYTES % (MANUAL) 5 % (16-48); MONOCYTES % (MANUAL) 1 % (0-11.0); NEUTROPHILS % (MANUAL) 91 (42-76); PLATELET ESTIMATE ADEQUATE
[2024-12-03 09:25] LABS: ABG BASE EXCESS -12.8 mmol/L (-2.0-3.0); ABG OXYGEN SATURATION 94.8 % (94.0-98.0); ABG PCO2 22.3 mmHg (35.0-48.0); ABG PH 7.337 (7.350-7.450); ABG PO2 75.9 mmHg (83.0-108.0); ABG TOTAL HEMOGLOBIN 7.1 G/dL (13.5-17.5); COHb 3.6 % (0.5-1.5); MetHb 0.2 % (0.0-1.5); O2Hb 91.2 % (94.0-97.0); SITE, ABG RIGHT RADIAL
[2024-12-03] MEDS: Sodium Bicarbonate 100 MEQ in IV 1/2NS 1000 ML 1,000 ML IV SCH (11:34)
[2024-12-03] MEDS: FERROUS SULFATE (325 MG) 325 MG/TAB TABLET PO SCH (16:45)
[2024-12-03 17:35] LABS: HEMOGLOBIN 7.2 g/dL (13.5-17.5)
[2024-12-03 18:15] LABS: INR 1.58 (0.91-1.10); PARTIAL THROMBOPLASTIN TIME 42.7 SEC (24.3-34.3); PROTHROMBIN TIME 16.3 SECS (9.2-11.1)
[2024-12-03 18:18] LABS: D-DIMER 9.76 mg/L(FEU (0.17-0.50)
[2024-12-03 23:47] LABS: HEMOGLOBIN 7.2 g/dL (13.5-17.5)
[2024-12-04] VITALS (56 sets, daily range): BP systolic 89–133; BP diastolic 61–96; TEMP 97.2–100.8; O2SAT 92–100
[2024-12-04] MEDS: ACETAMINOPHEN 650 MG/SUPP.RECT RC PRN (01:55)
[2024-12-04 01:59] LABS: ABG BASE EXCESS -11.1 mmol/L (-2.0-3.0); ABG OXYGEN SATURATION 95.8 % (94.0-98.0); ABG PCO2 19.4 mmHg (35.0-48.0); ABG PH 7.414 (7.350-7.450); ABG PO2 81.4 mmHg (83.0-108.0); ABG TOTAL HEMOGLOBIN 7.6 G/dL (13.5-17.5); COHb 2.9 % (0.5-1.5); MetHb 0.3 % (0.0-1.5); O2Hb 92.7 % (94.0-97.0); SITE, ABG RIGHT RADIAL
[2024-12-04 03:44] LABS: HEMATOCRIT 21 % (39-51); LYMPHOCYTES # (AUTO) 0.5 K/uL (0.8-4.8); LYMPHOCYTES % (AUTO) 1.8 % (20.0-44.0); MEAN CORPUSCULAR HEMOGLOBIN 23 PG (26.0-33.0); MEAN CORPUSCULAR HGB CONC 33 g/dl (31.0-36.0); MEAN CORPUSCULAR VOLUME 70 fL (80-96); MONOCYTES # (AUTO) 0.4 K/uL (0.1-1.30); MONOCYTES % (AUTO) 1.7 % (2.0-12.0); NEUTROPHILS # (AUTO) 25.2 K/uL (1.8-8.9); NEUTROPHILS % (AUTO) 96.5 % (43.0-81.0); PLATELET COUNT (AUTO) 207 K/uL (150-450); RED BLOOD CELL COUNT(AUTO) 2.97 MIL/uL (4.5-6.0); RED CELL DISTRIBUTION WIDTH 22.9 % (11.5-15.0); WHITE BLOOD COUNT (AUTO) 26.1 K/uL (4.3-11.0)
[2024-12-04 03:54] LABS: BILIRUBIN,TOTAL 0.5 mg/dL (0.2-1.0); CALCIUM, SERUM 9.7 mg/dL (8.5-10.1); CREATININE 3.2 mg/dL (0.6-1.3); MAGNESIUM 1.7 mg/dL (1.8-2.4); PHOSPHORUS 5.6 mg/dL (2.5-4.9); POTASSIUM 4.2 mmol/L (3.5-5.1); TOTAL PROTEIN, SERUM 5.7 g/dL (6.4-8.2)
[2024-12-04 03:59] LABS: INR 1.62 (0.91-1.10); PARTIAL THROMBOPLASTIN TIME 42.5 SEC (24.3-34.3); PROTHROMBIN TIME 16.6 SECS (9.2-11.1)
[2024-12-04 04:08] LABS: D-DIMER 13.02 mg/L(FEU (0.17-0.50)
[2024-12-04 04:21] LABS: HEMOGLOBIN 6.8 g/dL (13.5-17.5)
[2024-12-04 04:26] LABS: OCCULT BLOOD STOOL POSITIVE (NEGATIVE)
[2024-12-04 04:45] LABS: ALBUMIN 1.3 g/dL (3.4-5.0)
[2024-12-04 05:25] LABS: ANISOCYTOSIS 1+; BAND % (MANUAL) 5 % (0.0-5.0); LYMPHOCYTES % (MANUAL) 3 % (16-48); MONOCYTES % (MANUAL) 3 % (0-11.0); NEUTROPHILS % (MANUAL) 89 (42-76); PLATELET ESTIMATE ADEQUATE
[2024-12-04 06:10] LABS: IMMUNOGLOBULIN A, SERUM 369 mg/dL (61-437); IMMUNOGLOBULIN G, SERUM 1323 mg/dL (603-1613); IMMUNOGLOBULIN M, SERUM 116 mg/dL (20-172)
[2024-12-04 07:12] LABS: CARCINOEMBRYONIC ANTIGEN (CEA) 19.6 ng/mL (0.0-4.7); FOLIC ACID 4.4 ng/mL (>3.0)
[2024-12-04 08:07] LABS: FREE KAPPA LT CHAINS SERUM 120.4 mg/L (3.3-19.4); FREE LAMBDA LT CHAIN SERUM 130.2 mg/L (5.7-26.3); KAPPA/LAMBDA RATIO SERUM 0.92 (0.26-1.65)
[2024-12-04] MEDS: PANTOPRAZOLE 40 MG VIAL IV SCH (09:27)
[2024-12-04] MEDS ORDERED: Magnesium 1GM/D5W 100ML PREMIX PIGGYBACK IV ONE (10:00)
[2024-12-04] MEDS: Magnesium 1GM/D5W 100ML PREMIX PIGGYBACK IV ONE (10:28)
[2024-12-04] MEDS: CLINDAMYCIN 600 MG in IV NS 0.9% 46 ML IV SCH (13:25)
[2024-12-04] MEDS: NA PHOS,M-B/NA PHOS,DI-BA 1 EA ENEMA RC PRN (21:18)
[2024-12-04] MEDS: IV NS 0.9% 250 ML IV PRN (23:21)
[2024-12-05] VITALS (23 sets, daily range): BP systolic 104–150; BP diastolic 66–89; TEMP 96.3–98.6; O2SAT 96–100
[2024-12-05 04:20] LABS: EOSINOPHILS % (AUTO) 0.2 % (0.0-6.0); HEMATOCRIT 24 % (39-51); HEMOGLOBIN 7.9 g/dL (13.5-17.5); LYMPHOCYTES # (AUTO) 0.6 K/uL (0.8-4.8); LYMPHOCYTES % (AUTO) 2.6 % (20.0-44.0); MEAN CORPUSCULAR HEMOGLOBIN 25 PG (26.0-33.0); MEAN CORPUSCULAR HGB CONC 33 g/dl (31.0-36.0); MEAN CORPUSCULAR VOLUME 74 fL (80-96); MONOCYTES # (AUTO) 0.3 K/uL (0.1-1.30); MONOCYTES % (AUTO) 1.4 % (2.0-12.0); NEUTROPHILS # (AUTO) 23.2 K/uL (1.8-8.9); NEUTROPHILS % (AUTO) 95.8 % (43.0-81.0); PLATELET COUNT (AUTO) 145 K/uL (150-450); RED BLOOD CELL COUNT(AUTO) 3.22 MIL/uL (4.5-6.0); RED CELL DISTRIBUTION WIDTH 23.2 % (11.5-15.0); WHITE BLOOD COUNT (AUTO) 24.3 K/uL (4.3-11.0)
[2024-12-05 04:29] LABS: BILIRUBIN,TOTAL 0.4 mg/dL (0.2-1.0); CALCIUM, SERUM 9.6 mg/dL (8.5-10.1); CREATININE 3.2 mg/dL (0.6-1.3); PHOSPHORUS 5.8 mg/dL (2.5-4.9); POTASSIUM 3.7 mmol/L (3.5-5.1); TOTAL PROTEIN, SERUM 5.5 g/dL (6.4-8.2)
[2024-12-05 04:47] LABS: ALBUMIN 1.3 g/dL (3.4-5.0)
[2024-12-05 04:48] LABS: INR 1.49 (0.91-1.10); PARTIAL THROMBOPLASTIN TIME 41.1 SEC (24.3-34.3); PROTHROMBIN TIME 15.4 SECS (9.2-11.1)
[2024-12-05 04:50] LABS: D-DIMER 21.41 mg/L(FEU (0.17-0.50)
[2024-12-05] MEDS: CLOTRIMAZOLE/BETAMETASONE DIPROPIONATE 15 GM TUBE TP SCH (08:32)
[2024-12-06] VITALS: BP 125/80; TEMP 97.5; O2SAT 99
[2024-12-06 04:00] VITALS: BP 132/89; TEMP 97.5; O2SAT 99
[2024-12-06 08:00] VITALS: BP 133/85; TEMP 97.5; O2SAT 99
[2024-12-06 08:15] LABS: BILIRUBIN,TOTAL 0.6 mg/dL (0.2-1.0); CALCIUM, SERUM 8.9 mg/dL (8.5-10.1); CREATININE 3.2 mg/dL (0.6-1.3); MAGNESIUM 1.9 mg/dL (1.8-2.4); PHOSPHORUS 6.2 mg/dL (2.5-4.9); POTASSIUM 3.5 mmol/L (3.5-5.1); TOTAL PROTEIN, SERUM 5.4 g/dL (6.4-8.2)
[2024-12-06 08:23] LABS: INR 1.49 (0.91-1.10); PARTIAL THROMBOPLASTIN TIME 37.6 SEC (24.3-34.3); PROTHROMBIN TIME 15.4 SECS (9.2-11.1)
[2024-12-06 08:47] LABS: D-DIMER 34.48 mg/L(FEU (0.17-0.50)
[2024-12-06 08:48] LABS: BASOPHILS # (AUTO) 0.1 K/uL (0.0-0.2); BASOPHILS % (AUTO) 0.3 % (0.0-2.0); EOSINOPHILS % (AUTO) 0.1 % (0.0-6.0); HEMATOCRIT 21 % (39-51); LYMPHOCYTES # (AUTO) 0.5 K/uL (0.8-4.8); LYMPHOCYTES % (AUTO) 2.2 % (20.0-44.0); MEAN CORPUSCULAR HEMOGLOBIN 24 PG (26.0-33.0); MEAN CORPUSCULAR HGB CONC 32 g/dl (31.0-36.0); MEAN CORPUSCULAR VOLUME 74 fL (80-96); MONOCYTES # (AUTO) 0.5 K/uL (0.1-1.30); NEUTROPHILS # (AUTO) 22.6 K/uL (1.8-8.9); NEUTROPHILS % (AUTO) 95.4 % (43.0-81.0); PLATELET COUNT (AUTO) 136 K/uL (150-450); RED BLOOD CELL COUNT(AUTO) 2.89 MIL/uL (4.5-6.0); RED CELL DISTRIBUTION WIDTH 23.1 % (11.5-15.0); WHITE BLOOD COUNT (AUTO) 23.7 K/uL (4.3-11.0)
[2024-12-06 10:03] LABS: HEMOGLOBIN 6.9 g/dL (13.5-17.5)
[2024-12-06 10:04] LABS: ALBUMIN 1.2 g/dL (3.4-5.0)
[2024-12-06 12:07] LABS: ANISOCYTOSIS 1+; HYPOCHROMASIA 1+; LYMPHOCYTES % (MANUAL) 1 % (16-48); MONOCYTES % (MANUAL) 1 % (0-11.0); NEUTROPHILS % (MANUAL) 98 (42-76); PLATELET ESTIMATE DECREASED
[2024-12-06 13:36] LABS: HEMOGLOBIN 7.5 g/dL (13.5-17.5)
[2024-12-06 16:00] VITALS: BP 121/81; TEMP 97; O2SAT 100
[2024-12-06] MEDS: MEROPENEM 500 MG in IV NS 0.9% 50 ML IV SCH (16:18)
[2024-12-06] MEDS: SILVER SULFADIAZINE 50 GM JAR TP SCH (16:31)
[2024-12-06] MEDS: CEFAZOLIN 1 GM in IV D5W 50 ML IV SCH (17:05)
[2024-12-07] VITALS: BP 120/76; TEMP 97; O2SAT 99
[2024-12-07 08:06] LABS: CALCIUM, SERUM 9.2 mg/dL (8.5-10.1); CREATININE 2.8 mg/dL (0.6-1.3); POTASSIUM 3.2 mmol/L (3.5-5.1)
[2024-12-07 08:20] LABS: INR 1.51 (0.91-1.10); PARTIAL THROMBOPLASTIN TIME 37.1 SEC (24.3-34.3); PROTHROMBIN TIME 15.6 SECS (9.2-11.1)
[2024-12-07 08:28] LABS: D-DIMER 28.9 mg/L(FEU (0.17-0.50)
[2024-12-07 09:55] LABS: BASOPHILS % (AUTO) 0.1 % (0.0-2.0); LYMPHOCYTES # (AUTO) 0.5 K/uL (0.8-4.8); MEAN CORPUSCULAR HEMOGLOBIN 23 PG (26.0-33.0); MEAN CORPUSCULAR HGB CONC 33 g/dl (31.0-36.0); MEAN CORPUSCULAR VOLUME 72 fL (80-96); MONOCYTES # (AUTO) 0.7 K/uL (0.1-1.30); MONOCYTES % (AUTO) 2.8 % (2.0-12.0); NEUTROPHILS # (AUTO) 22.8 K/uL (1.8-8.9); NEUTROPHILS % (AUTO) 95.1 % (43.0-81.0); PLATELET COUNT (AUTO) 139 K/uL (150-450); RED BLOOD CELL COUNT(AUTO) 2.75 MIL/uL (4.5-6.0); RED CELL DISTRIBUTION WIDTH 23.7 % (11.5-15.0)
[2024-12-07 10:06] LABS: HEMATOCRIT 20 % (39-51); HEMOGLOBIN 6.4 g/dL (13.5-17.5)
[2024-12-07] MEDS: diphenhydrAMINE HCL 50 MG/ML VIAL IV ONE (10:30)
[2024-12-07] MEDS: ACETAMINOPHEN 325 MG TABLET PO ONE (10:30)
[2024-12-07] MEDS: LEVETIRACETAM (500MG) 500 MG in IV NS 0.9% 100 ML IV SCH (11:00)
[2024-12-07 11:47] VITALS: BP 120/76; TEMP 98; O2SAT 100
[2024-12-07 14:41] LABS: ANISOCYTOSIS 1+; LYMPHOCYTES % (MANUAL) 3 % (16-48); NEUTROPHILS % (MANUAL) 97 (42-76); PLATELET ESTIMATE DECREASED; TARGET CELLS 1+
[2024-12-07 16:56] VITALS: BP 112/68; TEMP 98.1
[2024-12-07] MEDS: LINEZOLID RTU BAG 600 MG in PREMIX 1 EA IV SCH (20:55)
[2024-12-08] VITALS (9 sets, daily range): BP systolic 112–130; BP diastolic 68–86; TEMP 95.8–98.2; O2SAT 98–100
[2024-12-08 07:37] LABS: BASOPHILS % (AUTO) 0.2 % (0.0-2.0); EOSINOPHILS % (AUTO) 0.1 % (0.0-6.0); HEMATOCRIT 22 % (39-51); HEMOGLOBIN 7.7 g/dL (13.5-17.5); LYMPHOCYTES # (AUTO) 0.5 K/uL (0.8-4.8); LYMPHOCYTES % (AUTO) 2.2 % (20.0-44.0); MEAN CORPUSCULAR HEMOGLOBIN 26 PG (26.0-33.0); MEAN CORPUSCULAR HGB CONC 35 g/dl (31.0-36.0); MEAN CORPUSCULAR VOLUME 75 fL (80-96); MONOCYTES # (AUTO) 0.7 K/uL (0.1-1.30); NEUTROPHILS # (AUTO) 21.3 K/uL (1.8-8.9); NEUTROPHILS % (AUTO) 94.5 % (43.0-81.0); PLATELET COUNT (AUTO) 110 K/uL (150-450); RED BLOOD CELL COUNT(AUTO) 2.99 MIL/uL (4.5-6.0); RED CELL DISTRIBUTION WIDTH 23.7 % (11.5-15.0); WHITE BLOOD COUNT (AUTO) 22.5 K/uL (4.3-11.0)
[2024-12-08 07:51] LABS: CALCIUM, SERUM 8.2 mg/dL (8.5-10.1); CREATININE 2.5 mg/dL (0.6-1.3); MAGNESIUM 1.6 mg/dL (1.8-2.4); PHOSPHORUS 4.9 mg/dL (2.5-4.9)
[2024-12-08 10:36] LABS: INR 1.41 (0.91-1.10); PARTIAL THROMBOPLASTIN TIME 39.8 SEC (24.3-34.3); PROTHROMBIN TIME 14.3 SECS (9.2-11.1)
[2024-12-08] MEDS: Magnesium 1GM/D5W 100ML PREMIX 100 ML IV SCH (12:22)
[2024-12-08 12:25] LABS: ANISOCYTOSIS 2+; EOSINOPHILS % (MANUAL) 1 % (0-4); HYPOCHROMASIA 1+; LYMPHOCYTES % (MANUAL) 3 % (16-48); MONOCYTES % (MANUAL) 2 % (0-11.0); NEUTROPHILS % (MANUAL) 94 (42-76); PLATELET ESTIMATE DECREASED
[2024-12-08 14:29] LABS: D-DIMER 21.72 mg/L(FEU (0.17-0.50)
[2024-12-08] MEDS: MORPHINE SULFATE INJ 2 MG/ML DISP.SYRIN IV PRN (18:46)
[2024-12-08 20:24] LABS: CALCIUM, SERUM 8.3 mg/dL (8.5-10.1); CREATININE 2.5 mg/dL (0.6-1.3)
[2024-12-08 20:30] LABS: POTASSIUM 2.6 mmol/L (3.5-5.1)
[2024-12-08] MEDS: POTASSIUM CL. PREMIX PERIPHER. 50 ML IV SCH (21:57)
[2024-12-09] VITALS (7 sets, daily range): BP systolic 33–145; BP diastolic 10–87; TEMP 97.5–98.5; O2SAT 99–100
[2024-12-09] MEDS: IV D5W 1,000 ML IV PRN (02:00)
[2024-12-09 08:13] LABS: BASOPHILS % (AUTO) 0.1 % (0.0-2.0); EOSINOPHILS # (AUTO) 0.1 K/uL (0.0-0.7); EOSINOPHILS % (AUTO) 0.4 % (0.0-6.0); HEMATOCRIT 21 % (39-51); LYMPHOCYTES # (AUTO) 0.4 K/uL (0.8-4.8); LYMPHOCYTES % (AUTO) 2.3 % (20.0-44.0); MEAN CORPUSCULAR HEMOGLOBIN 25 PG (26.0-33.0); MEAN CORPUSCULAR HGB CONC 33 g/dl (31.0-36.0); MEAN CORPUSCULAR VOLUME 75 fL (80-96); MONOCYTES # (AUTO) 0.5 K/uL (0.1-1.30); MONOCYTES % (AUTO) 2.8 % (2.0-12.0); NEUTROPHILS # (AUTO) 18.3 K/uL (1.8-8.9); NEUTROPHILS % (AUTO) 94.4 % (43.0-81.0); PLATELET COUNT (AUTO) 105 K/uL (150-450); RED BLOOD CELL COUNT(AUTO) 2.79 MIL/uL (4.5-6.0); RED CELL DISTRIBUTION WIDTH 22.9 % (11.5-15.0); WHITE BLOOD COUNT (AUTO) 19.4 K/uL (4.3-11.0)
[2024-12-09 08:19] LABS: HEMOGLOBIN 6.9 g/dL (13.5-17.5)
[2024-12-09 08:28] LABS: INR 1.46 (0.91-1.10); PARTIAL THROMBOPLASTIN TIME 40.2 SEC (24.3-34.3); PROTHROMBIN TIME 15.1 SECS (9.2-11.1)
[2024-12-09 08:44] LABS: D-DIMER 15.68 mg/L(FEU (0.17-0.50)
[2024-12-09 10:02] LABS: ANISOCYTOSIS 1+; HYPOCHROMASIA 1+; LYMPHOCYTES % (MANUAL) 1 % (16-48); MONOCYTES % (MANUAL) 1 % (0-11.0); NEUTROPHILS % (MANUAL) 98 (42-76); PLATELET ESTIMATE DECREASED
[2024-12-09 10:30] LABS: CALCIUM, SERUM 8.4 mg/dL (8.5-10.1); CREATININE 2.5 mg/dL (0.6-1.3); MAGNESIUM 1.9 mg/dL (1.8-2.4); POTASSIUM 3.1 mmol/L (3.5-5.1)
[2024-12-09] MEDS: NALOXONE HCL 0.4 MG/ML AMPUL IV PRN (14:13)
[2024-12-09 14:39] LABS: ABG BASE EXCESS -8.8 mmol/L (-2.0-3.0); ABG OXYGEN SATURATION 56.4 % (94.0-98.0); ABG PCO2 57.6 mmHg (35.0-48.0); ABG PH 7.152 (7.350-7.450); ABG TOTAL HEMOGLOBIN 8.6 G/dL (13.5-17.5); COHb 1.2 % (0.5-1.5); MetHb 0.3 % (0.0-1.5); O2Hb 55.6 % (94.0-97.0); SITE, ABG RIGHT BRACHIAL
[2024-12-09] MEDS ORDERED: MORPHINE SULFATE INJ 2 MG/ML DISP.SYRIN IV PRN (15:00)
[2024-12-10 09:11] LABS: *SPE A/G RATIO 0.5 (0.7-1.7); *SPE ALBUMIN 1.7 g/dL (2.9-4.4); *SPE ALPHA-1-GLOBULIN 0.5 g/dL (0.0-0.4); *SPE ALPHA-2-GLOBULIN 0.6 g/dL (0.4-1.0); *SPE BETA GLOBULIN 0.7 g/dL (0.7-1.3); *SPE GLOBULIN, TOTAL 3.1 g/dL (2.2-3.9); *SPE M-SPIKE Not Observed g/dL (Not Observed); *SPE PROTEIN TOTAL 4.8 g/dL (6.0-8.5); *SPEGAMMA GLOBULIN 1.3 g/dL (0.4-1.8)
[2024-12-13 09:11] LABS: *SPE A/G RATIO 0.6 (0.7-1.7); *SPE ALBUMIN 1.9 g/dL (2.9-4.4); *SPE ALPHA-1-GLOBULIN 0.5 g/dL (0.0-0.4); *SPE ALPHA-2-GLOBULIN 0.7 g/dL (0.4-1.0); *SPE BETA GLOBULIN 0.8 g/dL (0.7-1.3); *SPE GLOBULIN, TOTAL 3.4 g/dL (2.2-3.9); *SPE M-SPIKE Not Observed g/dL (Not Observed); *SPE PROTEIN TOTAL 5.3 g/dL (6.0-8.5); *SPEGAMMA GLOBULIN 1.5 g/dL (0.4-1.8)
== END 2024-12-09 15:16 | DRG 466 ==
LOC: ER 10:40 → MED 14:24 → TELE 15:32 → ICU 12-01 05:12 → TELE 12-03 17:56 → ICU 12-04 01:24 → TELE1 12-05 22:59 → MEDSG1 12-06 09:41
PROVIDERS: ADMIT Internal Medicine
PROC: 30233N1 Transfusion of Nonautologous Red Blood Cells into Peripheral Vein, Percutaneous Approach (ICD-10-PCS; principal; 2024-11-30)
DX: T83.511A Infection and inflammatory reaction due to indwelling urethral catheter, initial encounter (principal); N17.0 Acute kidney failure with tubular necrosis; R65.21 Severe sepsis with septic shock; J96.01 Acute respiratory failure with hypoxia; A41.9 Sepsis, unspecified organism; G93.49 Other encephalopathy; L89.153 Pressure ulcer of sacral region, stage 3; E44.0 Moderate protein-calorie malnutrition; L89.894 Pressure ulcer of other site, stage 4; L89.626 Pressure-induced deep tissue damage of left heel; J96.02 Acute respiratory failure with hypercapnia; R64 Cachexia; Y92.89 Other specified places as the place of occurrence of the external cause; C79.51 Secondary malignant neoplasm of bone; E83.9 Disorder of mineral metabolism, unspecified; E87.0 Hyperosmolality and hypernatremia; D68.9 Coagulation defect, unspecified; T83.091A Other mechanical complication of indwelling urethral catheter, initial encounter; Z51.5 Encounter for palliative care; E87.1 Hypo-osmolality and hyponatremia; E87.20 Acidosis, unspecified; C34.12 Malignant neoplasm of upper lobe, left bronchus or lung; E88.09 Other disorders of plasma-protein metabolism, not elsewhere classified; D64.9 Anemia, unspecified; B96.20 Unspecified Escherichia coli [E. coli] as the cause of diseases classified elsewhere; B96.4 Proteus (mirabilis) (morganii) as the cause of diseases classified elsewhere; E86.1 Hypovolemia; E83.52 Hypercalcemia; F17.210 Nicotine dependence, cigarettes, uncomplicated; G40.909 Epilepsy, unspecified, not intractable, without status epilepticus; G47.00 Insomnia, unspecified; I10 Essential (primary) hypertension; Z87.440 Personal history of urinary (tract) infections; Z66 Do not resuscitate; Z74.01 Bed confinement status; J44.9 Chronic obstructive pulmonary disease, unspecified; S91.302A Unspecified open wound, left foot, initial encounter; X58.XXXA Exposure to other specified factors, initial encounter; Y93.9 Activity, unspecified; L98.8 Other specified disorders of the skin and subcutaneous tissue; L89.612 Pressure ulcer of right heel, stage 2; L03.314 Cellulitis of groin; K92.2 Gastrointestinal hemorrhage, unspecified; B95.2 Enterococcus as the cause of diseases classified elsewhere; Z16.12 Extended spectrum beta lactamase (ESBL) resistance; N13.6 Pyonephrosis; Z16.21 Resistance to vancomycin; N48.22 Cellulitis of corpus cavernosum and penis; R62.7 Adult failure to thrive; Z68.1 Body mass index [BMI] 19.9 or less, adult; Y84.6 Urinary catheterization as the cause of abnormal reaction of the patient, or of later complication, without mention of misadventure at the time of the procedure; Y92.129 Unspecified place in nursing home as the place of occurrence of the external cause; Y73.8 Miscellaneous gastroenterology and urology devices associated with adverse incidents, not elsewhere classified; M19.90 Unspecified osteoarthritis, unspecified site; J18.9 Pneumonia, unspecified organism; J90 Pleural effusion, not elsewhere classified; D50.9 Iron deficiency anemia, unspecified; E87.5 Hyperkalemia; I73.9 Peripheral vascular disease, unspecified; F03.90 Unspecified dementia, unspecified severity, without behavioral disturbance, psychotic disturbance, mood disturbance, and anxiety; M84.48XA Pathological fracture, other site, initial encounter for fracture
CPT/HCPCS: 36415; 70450-TC; 71045-TC; 71250-TC; 72128-TC; 72131-TC; 76770-TC; 80048-TC; 80053-TC; 80076-TC; 81001; 82040-TC; 82272-TC; 82306; 82378; 82533; 82550-TC; 82570-TC; 82607-TC; 82728-TC; 82784; 82962-TC; 83540-TC; 83605-TC; 83735-TC; 83970; 84100-TC; 84155; 84165; 84300-TC; 84443-TC; 85025-TC; 85027-TC; 85396; 85730-TC; 86334; 86850-TC; 87040-TC; 87081-TC; 87086-TC; 87186-TC; 92526; 92611-TC; 93307-TC; A4216; A4217; A4223; A6253; A6403; C1752; G0378; J0612; J0690; J0692; J1953; J2020; J2185; J2270; J2310; J2470; J3475; J3480; J3490; J7030; J7050; J7060; J7070; P9016